=== PATIENT | male | born 1950 | race Caucasian/White ===

== ENCOUNTER 2018-02-08 10:20 | Outpatient (CLI) | payer MEDICARE, BC ==
[2018-02-08 12:15] LABS: Hemoglobin 15.2 g/dL (14.0-18.0); Mean Corpuscular HGB CONC 34.5 g/dL (32.0-36.0); Mean Corpuscular Hemoglobin 31.9 pg (27.0-31.0); Mean Corpuscular Volume 92.5 fl (80.0-94.0); Mean Platelet Volume 9.5 fL (7.4-10.4); Platelet Count 156 thou/uL (130-400); RBC Distribution Width 13.2 % (11.5-14.5); Red Blood Cell (RBC) Count 4.76 mill/uL (4.70-6.10); White Blood Cell (WBC) Count 8.4 thou/uL (4.8-10.8)
[2018-02-08 12:24] LABS: INR-International Normal Ratio 1.1; PTT 30.6 SEC (22.9-36.1); Prothrombin Time 14.2 SEC (12.0-14.7)
[2018-02-08 12:42] LABS: ALT (SGPT) 25 U/L (8-55); AST (SGOT) 18 U/L (5-34); Albumin 4.2 g/dL (3.4-4.8); Alkaline Phosphatase 107 U/L (40-150); Anion Gap 12 mmol/L (10-20); BUN (Urea Nitrogen) 15 mg/dL (8.4-25.7); Bilirubin, Total 0.7 mg/dL (0.2-1.2); Calc. Creatinine Clearance 0 mL/min (70-130); Carbon Dioxide 26 mmol/L (23-31); Cardiac Risk 4.1 (Less than 4.5); Chloride 104 mmol/L (98-107); Cholesterol 139 mg/dl (< 200 Desired); Estimated GFR-MDRD 75; Globulin 2.9 g/dL (2.4-3.5); Glucose 97 mg/dL (80-115); HDL Cholesterol 34 mg/dL (>60 Neg Risk); LDL Cholesterol, Calculated 86 mg/dL; Potassium 3.6 mmol/L (3.5-5.1); Protein, Total 7.1 g/dL (5.8-8.1); Sodium 138 mmol/L (136-145); Triglycerides 94 mg/dL (Less than 150)
== END 2018-02-08 10:21 | disposition home or self-care (01) ==
LOC: LABBT 10:20
PROVIDERS: ATTEND Internal Medicine Cardiovascular Disease
DX: Z01.818 Encounter for other preprocedural examination (principal); I50.9 Heart failure, unspecified
CPT/HCPCS: 80053; 80061; 85027; 85610; 85730; 93005; 93010

== ENCOUNTER 2018-02-11 05:58 | Observation (INO) | payer MEDICARE, BC ==
[2018-02-11] MEDS ORDERED: Nitroglycerin 100MG/250ML BOT 0 ML ONE (06:31)
[2018-02-11] MEDS ORDERED: Heparin 10,000 UNITS/1 ML VIAL ONE ×3 (06:31→07:56)
[2018-02-11] MEDS ORDERED: Verapamil 5 MG/2 ML VIAL ONE (06:31)
[2018-02-11] MEDS ORDERED: Lidocaine 1% (PF) 30 ML VIAL ONE (06:36)
[2018-02-11] MEDS ORDERED: Midazolam HCl 2 mg/2 ml Vial ONE (07:12)
[2018-02-11] MEDS ORDERED: Fentanyl 250 MCG/5 ML VIAL ONE (07:12)
[2018-02-11] MEDS ORDERED: Clopidogrel Bisulfate 300 MG TAB ONE (07:41)
[2018-02-11] MEDS ORDERED: Nitroglycerin 100MG/250ML BOT 250 ML ONE (07:41)
--- NOTE | 2018-02-11 08:18 | CCL ---
ADDENDUM: Mr. Bustillo did well during his procedure. He did have pain after stent implantation. There appeared to be a septal branch that was occluded after placement of the stent. There appeared to be excellen t angiographic result with appropriate step up, step down. ILYA 3 flow noted during the study. Also, note during the procedure, there was significant deep engagement of the catheter during stent p ositioning. It was difficult to place a stent due to continued deep engagement of the catheter. Aft er multiple attempts, there was appropriate placement. POS: [facility]
[2018-02-11] MEDS ORDERED: Morphine 2 MG/ML SYRINGE ONE (08:25)
[2018-02-11] MEDS ORDERED: Nitroglycerin 0.4 MG TAB (25 Tab Bottle) ONE (08:46)
[2018-02-11 12:35] LABS: CKMB 4.6 ng/mL (0-6.6); Troponin I 0.078 ng/mL (< 0.028)
[2018-02-11] MEDS ORDERED: traMADol HCl 50 MG TAB ONE (13:25)
[2018-02-11] MEDS ORDERED: Ondansetron HCl/PF 4 MG/2 ML Vial ONE (14:35)
[2018-02-11] MEDS ORDERED: Iopamidol 370 76% 50 ML VIAL FS ONE (15:31)
[2018-02-11] MEDS ORDERED: Iopamidol 370 76% 100 ML VIAL ONE (15:31)
[2018-02-11 18:07] LABS: CKMB 10.6 ng/mL (0-6.6)
[2018-02-11 18:08] LABS: Troponin I 0.388 ng/mL (< 0.028)
[2018-02-11] MEDS ORDERED: traMADol HCl 50 MG TAB PO PRN (19:11)
[2018-02-11] MEDS ORDERED: Morphine 5 MG/ML SYRINGE SLOW IVP PRN ×2 (19:11→20:27)
[2018-02-11] MEDS ORDERED: Milk Of Magnesia 30 ML UDCUP PO PRN (19:11)
[2018-02-11] MEDS ORDERED: Acetaminophen/Codeine 30-300mg Tablet PO PRN ×2 (19:11→20:26)
[2018-02-11] MEDS ORDERED: Mag-Al 1200 mg/1200 mg/30 ML UDCUP PO PRN (19:11)
[2018-02-11] MEDS ORDERED: Nitroglycerin 0.4 MG TAB (25 Tab Bottle) SL PRN (19:11)
[2018-02-11] MEDS ORDERED: Zolpidem Tartrate 5 MG TAB PO PRN (19:11)
--- NOTE | 2018-02-11 20:05 | EKG ---
Test Reason : POST STENT Blood Pressure : / mmHG Vent. Rate : 071 BPM Atrial Rate : 071 BPM P-R Int : 204 ms QRS Dur : 172 ms QT Int : 470 ms P-R-T Axes : 056 -02 171 degrees QTc Int : 510 ms Normal sinus rhythm Left bundle branch block Abnormal ECG When compared with ECG of 08-FEB-2018 10:25, (Unconfirmed) No significant change was found Confirmed by GÉNESIS SALMON, DR. S. ([id number]) on 02/11/2018 8:05:09 PM Referred By: GRANT Confirmed By:DR. Olesya CAPPS MD
[2018-02-11] MEDS ORDERED: Acetaminophen 325 MG TAB PO PRN (20:08)
[2018-02-11 20:17] LABS: CKMB 15.4 ng/mL (0-6.6)
[2018-02-11] MEDS ORDERED: cloNIDine 0.1 MG TAB PO PRN (20:26)
[2018-02-11] MEDS: Sodium Chloride 0.9% 1,000 ML IV SCH (20:45)
[2018-02-11] MEDS ORDERED: Ondansetron HCl/PF 4 MG/2 ML Vial SLOW IVP PRN (20:45)
[2018-02-11] MEDS ORDERED: Atorvastatin Calcium 40 MG TAB PO SCH ×2 (21:00)
[2018-02-11 21:17] VITALS: BMI 35.2
[2018-02-12 02:04] LABS: CKMB 18.5 ng/mL (0-6.6)
[2018-02-12 05:53] LABS: #Basophils 0.1 thou/uL (0.0-0.2); #Eosinphils 0.4 thou/uL (0.0-0.7); #Lymphocytes 2.5 thou/uL (1.20-3.40); #Monocytes 1.5 thou/uL (0.11-0.59); #Neutrophils 7.1 thou/uL (1.40-6.50); %Basophils 0.5 % (0.0-1.0); %Eosinophils 3.1 % (0.0-10.0); %Lymphocytes 21.6 % (21.0-51.0); %Neutrophils 61.8 % (42.0-75.0); Hemoglobin 14.2 g/dL (14.0-18.0); Mean Corpuscular HGB CONC 34.1 g/dL (32.0-36.0); Mean Corpuscular Hemoglobin 31.3 pg (27.0-31.0); Mean Platelet Volume 9.7 fL (7.4-10.4); Platelet Count 149 thou/uL (130-400); RBC Distribution Width 12.8 % (11.5-14.5); Red Blood Cell (RBC) Count 4.53 mill/uL (4.70-6.10); White Blood Cell (WBC) Count 11.5 thou/uL (4.8-10.8)
[2018-02-12] MEDS: Sodium Chloride 0.9% 1,000 ML IV SCH (06:09)
[2018-02-12 06:20] LABS: ALT (SGPT) 20 U/L (8-55); AST (SGOT) 39 U/L (5-34); Anion Gap 12 mmol/L (10-20); BUN (Urea Nitrogen) 13 mg/dL (8.4-25.7); Bilirubin, Total 0.7 mg/dL (0.2-1.2); Calc. Creatinine Clearance 134 mL/min (70-130); Calcium 9.5 mg/dL (7.8-10.44); Carbon Dioxide 26 mmol/L (23-31); Estimated GFR-MDRD Greater than 90; Globulin 2.5 g/dL (2.4-3.5); Glucose 90 mg/dL (80-115); Potassium 3.5 mmol/L (3.5-5.1); Protein, Total 6.5 g/dL (5.8-8.1); Sodium 138 mmol/L (136-145)
[2018-02-12 06:27] LABS: Alkaline Phosphatase 100 U/L (40-150)
[2018-02-12 06:31] LABS: Chloride 104 mmol/L (98-107)
[2018-02-12] MEDS ORDERED: Hydrochlorothiazide 25 MG TAB PO SCH (09:00)
[2018-02-12] MEDS ORDERED: Valsartan 80 MG TAB PO SCH (09:00)
[2018-02-12] MEDS ORDERED: Clopidogrel Bisulfate 75 MG TAB PO SCH (09:00)
[2018-02-12 11:16] VITALS: BP 141/84; TEMP 97.9
--- NOTE | 2018-02-12 20:35 | EKG ---
Test Reason : STAT Blood Pressure : / mmHG Vent. Rate : 088 BPM Atrial Rate : 088 BPM P-R Int : 194 ms QRS Dur : 170 ms QT Int : 418 ms P-R-T Axes : 056 -07 144 degrees QTc Int : 505 ms Sinus rhythm with frequent Premature ventricular complexes Left bundle branch block Abnormal ECG When compared with ECG of 11-FEB-2018 08:46, Premature ventricular complexes are now Present Confirmed by GÉNESIS SALMON, SKit ([id number]) on 02/12/2018 8:35:43 PM Referred By: GRANT Confirmed By:DR. Olesya CAPPS MD
--- NOTE | 2018-02-12 20:38 | EKG ---
Test Reason : Blood Pressure : / mmHG Vent. Rate : 085 BPM Atrial Rate : 085 BPM P-R Int : 202 ms QRS Dur : 172 ms QT Int : 448 ms P-R-T Axes : 061 -15 138 degrees QTc Int : 533 ms Sinus rhythm with occasional Premature ventricular complexes Left bundle branch block Abnormal ECG When compared with ECG of 11-FEB-2018 19:34, (Unconfirmed) No significant change was found Confirmed by GÉNESIS SALMON, DR. S. ([id number]) on 02/12/2018 8:38:15 PM Referred By: GRANT Confirmed By:DR. Olesya CAPPS MD
== END 2018-02-12 11:38 | disposition home or self-care (01) ==
LOC: CCL 05:58 → 2SW 18:31 → CCL 19:13
PROVIDERS: ADMIT Internal Medicine Cardiovascular Disease; ATTEND Internal Medicine Cardiovascular Disease
PROC: 027034Z Dilation of Coronary Artery, One Artery with Drug-eluting Intraluminal Device, Percutaneous Approach (ICD-10-PCS; principal; 2018-02-11)
DX: I11.0 Hypertensive heart disease with heart failure (principal); I50.22 Chronic systolic (congestive) heart failure; E78.5 Hyperlipidemia, unspecified; K50.90 Crohn's disease, unspecified, without complications; I25.119 Atherosclerotic heart disease of native coronary artery with unspecified angina pectoris; M19.90 Unspecified osteoarthritis, unspecified site; Z79.82 Long term (current) use of aspirin; Z79.899 Other long term (current) drug therapy; Z88.1 Allergy status to other antibiotic agents; Z88.2 Allergy status to sulfonamides; Z98.890 Other specified postprocedural states
CPT/HCPCS: 76942; 80053; 82553 ×4; 84484 ×2; 85025; 85347 ×3; 93005 ×3; 93454; 93798; 96374; C1725; C1769 ×2; C1874; C9600; G0378; 36415; 92928; 93010; 99152; J1644; J2001; J2250; J2270; J2405; J3010

== ENCOUNTER 2018-03-25 14:32 | Outpatient (CLI) | payer MEDICARE, BC ==
--- NOTE | 2018-03-25 15:15 | ULT ---
DOPPLER VENOUS ULTRASOUND OF THE RIGHT LOWER EXTREMITY: Indication: Right leg pain extending from the knee to the foot that woke him from sleep for the past 10 days. TECHNIQUE: Clarke scale, color Doppler, and vascular duplex with spectral analysis was performed of the deep venou s structures of both lower extremities. The common femoral vein, superficial femoral vein, popliteal vein, posterior tibial vein, proximal greater saphenous, and proximal profunda veins were assessed bi laterally. FINDINGS: There is appropriate flow, compression, and augmentation seen within the deep venous structures of th e right lower extremity. IMPRESSION: No evidence of DVT within the right lower extremity. POS: [facility]
== END 2018-03-25 14:33 | disposition home or self-care (01) ==
LOC: SCSULT 14:32
PROVIDERS: ATTEND Family Medicine
DX: M79.604 Pain in right leg (principal)

== ENCOUNTER 2018-06-29 04:10 | Observation (INO) | payer MEDICARE, BC ==
[2018-06-29 04:52] LABS: #Eosinphils 0.3 thou/uL (0.0-0.7); #Lymphocytes 2.3 thou/uL (1.20-3.40); #Monocytes 1.2 thou/uL (0.11-0.59); #Neutrophils 5.5 thou/uL (1.40-6.50); %Basophils 0.3 % (0.0-1.0); %Eosinophils 3.4 % (0.0-10.0); %Lymphocytes 24.3 % (21.0-51.0); %Monocytes 13.3 % (0.0-10.0); %Neutrophils 58.7 % (42.0-75.0); Mean Corpuscular HGB CONC 35.2 g/dL (32.0-36.0); Mean Corpuscular Hemoglobin 32.5 pg (27.0-31.0); Mean Corpuscular Volume 92.4 fL (78.0-98.0); Mean Platelet Volume 8.9 fL (7.4-10.4); Platelet Count 139 thou/uL (130-400); RBC Distribution Width 12.7 % (11.5-14.5); White Blood Cell (WBC) Count 9.3 thou/uL (4.8-10.8)
[2018-06-29 05:13] LABS: ALT (SGPT) 22 U/L (8-55); AST (SGOT) 16 U/L (5-34); Albumin 4.2 g/dL (3.4-4.8); Alkaline Phosphatase 99 U/L (40-150); Anion Gap 17 mmol/L (10-20); BUN (Urea Nitrogen) 15 mg/dL (8.4-25.7); Bilirubin, Total 0.7 mg/dL (0.2-1.2); Calc. Creatinine Clearance 0 mL/min (70-130); Calcium 9.1 mg/dL (7.8-10.44); Carbon Dioxide 22 mmol/L (23-31); Chloride 105 mmol/L (98-107); Estimated GFR-MDRD 75; Globulin 2.5 g/dL (2.4-3.5); Glucose 125 mg/dL (80-115); Lipase 37 U/L (8-78); Potassium 3.6 mmol/L (3.5-5.1); Protein, Total 6.7 g/dL (5.8-8.1); Sodium 140 mmol/L (136-145)
[2018-06-29 05:21] LABS: Bilirubin Negative (Negative); Blood, Urine Negative (Negative); Clarity CLEAR (Clear); Glucose, Urine (Dipstick) Negative (Negative); Leukocyte Negative (Negative); Nitrite Negative (Negative); Protein, Urine (Dipstick) Negative (Neg-Trace); Specific Gravity, Urine 1.023 (1.002-1.036)
[2018-06-29] MEDS ORDERED: Morphine 4 MG/ML VIAL ONE (05:34)
[2018-06-29] MEDS ORDERED: Ondansetron ODT 4 MG TAB ONE (05:35)
[2018-06-29 06:26] LABS: CKMB 1.3 ng/mL (0-6.6); Troponin I Less than 0.010 ng/mL (< 0.028)
[2018-06-29] MEDS ORDERED: Levofloxacin 500 mg/D5W 100 ml Premix Bag ONE (06:50)
--- NOTE | 2018-06-29 08:16 | ULT ---
PRELIMINARY REPORT/[facility]/EMERGENCY AFTER HOURS PROCEDURE: EXAM: US Abdomen Limited, Right Upper Quadrant EXAM DATE/TIME: 06/29/2018 6:01 AM CLINICAL HISTORY: 68 years old, male; Pain; Other: Upper abd pain, +kenny TECHNIQUE: Real-time ultrasound of the abdomen with image documentation. Examination is focused on the right upper quadrant. COMPARISON: No relevant prior studies available. FINDINGS: Liver: The left lobe liver is not well-seen. There is mild increased echogenicity of the right lobe l iver. Gallbladder: The gallbladder is distended. There is focal gallbladder wall thickening measuring up to 4.7 mm. There is pericholecystic fluid. Based on seating and mobility technologist report, there is positive M urphy's sign. Common bile duct: The common bile duct measures 4-5 mm. Pancreas: The pancreas is not well seen due to overlying bowel gas. Right kidney: The right kidney measures 11.6 x 5.5 x 5.9cm. IMPRESSION: 1. Findings are concerning for cholecystitis. Please correlate. 2. Probable fatty infiltration of the liver. Thank you for allowing us to participate in the care of your patient. Dictated and Authenticated by: Judy Bustos DO 06/29/2018 7:07 AM Central Time ([place] & [place]) FINAL REPORT BY DR. MEDRANO EMERGENCY AFTER HOURS STUDY ULTRASOUND ABDOMEN LIMITED: (RIGHT UPPER QUADRANT) HISTORY: Right upper quadrant abdominal pain in 68-year-old male. FINDINGS: Gallbladder: No gallstone identified. Focal mild mural thickening up to 5 mm. Other regions of gallbl adder have normal wall thickness. Positive tenderness over the gallbladder. Mildly distended lumen. Q uestionable minimal amount of pericholecystic fluid. Common duct: 5 mm. Liver: Mildly heterogeneously increased echogenicity, probably representing fatty liver. Pancreas: Nonspecific diffusely hyperechoic appearance. Right kidney: No hydronephrosis. No major disagreement with preliminary report by Lynnette. IMPRESSION: 1. No evidence of cholelithiasis. 2. Findings questionable for acalculous cholecystitis. Consider further evaluation with nuclear medi cine hepatobiliary scan. 3. Probable hepatic steatosis. TOMASZ Don POS: [facility]
[2018-06-29 09:36] VITALS: BMI 34.4
[2018-06-29] MEDS ORDERED: Ondansetron ODT 4 MG TAB PO PRN (10:24)
[2018-06-29] MEDS ORDERED: Ondansetron HCl/PF 4 MG/2 ML Vial IVP PRN ×2 (10:24→13:50)
[2018-06-29] MEDS ORDERED: Lactated Ringer's 1,000 ML IV SCH (10:30)
[2018-06-29] MEDS ORDERED: Carvedilol 6.25 MG TAB PO SCH (11:15)
[2018-06-29] MEDS ORDERED: Ketorolac Tromethamine 30 MG/ML VIAL IVP SCH (11:15)
[2018-06-29] MEDS ORDERED: Acetaminophen 1,000 MG in Premix Bag 1 BAG IVPB SCH (11:15)
[2018-06-29] MEDS ORDERED: Ketorolac Tromethamine 30 MG/ML VIAL ONE (11:31)
[2018-06-29] MEDS ORDERED: Fentanyl 100 MCG/2 ML VIAL ONE ×2 (12:16→14:13)
[2018-06-29] MEDS ORDERED: HYDROmorphone 0.5 MG/0.5 ML SYRINGE ONE ×2 (12:17)
[2018-06-29] MEDS ORDERED: Bupivacaine HCl 0.5%/Epinephrine 1:200,000/PF 30 ml Vial ONE (12:18)
[2018-06-29] MEDS ORDERED: Meperidine HCl/PF 25 MG/ML VIAL SLOW IVP PRN (13:50)
[2018-06-29] MEDS ORDERED: Promethazine HCl 25 MG/ML VIAL IM PRN (13:50)
[2018-06-29] MEDS ORDERED: Promethazine HCl 25 MG/ML VIAL SLOW IVP PRN (13:50)
[2018-06-29] MEDS ORDERED: Ibuprofen 600 MG TAB PO PRN (14:18)
[2018-06-29] MEDS ORDERED: Acetaminophen 500 MG TAB PO PRN (14:18)
[2018-06-29] MEDS ORDERED: traMADol HCl 50 MG TAB PO PRN ×2 (14:18)
[2018-06-29] MEDS ORDERED: ePHEDrine/0.9% NaCl/PF SYRINGE 50 mg/10 ml ONE (14:46)
[2018-06-29] MEDS ORDERED: PROPOFOL 200 MG/20 ML VIAL ONE (14:46)
[2018-06-29] MEDS ORDERED: Dexamethasone 20 MG/5 ML VIAL ONE (14:46)
[2018-06-29] MEDS ORDERED: Ondansetron HCl/PF 4 MG/2 ML Vial ONE (14:46)
[2018-06-29] MEDS ORDERED: Lidocaine 1% PF 5 ML VIAL ONE (14:46)
[2018-06-29] MEDS ORDERED: Glycopyrrolate 0.2 MG/ML 5 ML SYRINGE ONE (14:46)
[2018-06-29] MEDS ORDERED: PHENYLEPHRINE-NS 100 MCG/ML 10 ML SYRINGE ONE (14:46)
--- NOTE | 2018-06-29 15:57 | HP ---
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 Since that time, he has h ad problems with indigestion and bloating. He presents to the emergency room with a particularly sev ere episode onset yesterday. Pain is right upper quadrant. He has suffered nausea and vomiting. He had a gallbladder ultrasound noting pericholecystic fluid, thickened gallbladder wall, positive sono graphic Bey sign correlating with physical exam, positive Bey sign. Bile duct was 4-5 mm in di ameter. White count 9, hemoglobin 15. Liver function tests are normal. Lipase is normal. In 2016, he had a lipase up at 9135 when he had that episode. Gallbladder ultrasound in 2016 revealed a bile duct of 4 mm. No gallstones. The patient has had morphine early this morning and placed in the hos pital and placed on Levaquin. He is feeling some pressure and discomfort, but not as severe as when he was admitted. His abdomen exam reveals less tenderness, although tenderness to palpation, more so reness as he describes. ALLERGIES: SULFA and TETRACYCLINE. TOBACCO: None. ALCOHOL: Rarely. MEDICATIONS: Carvedilol 12.5 mg a day, daily, triamcinolone naris daily, Apriso three caps a.m ., Viagra as needed, Protonix 40 mg at bedtime, aspirin 81 mg a day, Flexeril 10 mg t.i.d., Lipitor 8 0 mg at bedtime, glucosamine daily, Singulair daily, Plavix daily. PAST SURGICAL HISTORY: The patient has had a coronary stent, myocardial infarction 20 years ago, he had another stent years after that. Dr. Morales saw him for dyspnea and placed another stent LAD t hree months ago. He is on Plavix and aspirin. He saw Dr. Morales recently. Echocardiogram reveal ed diminished ejection fraction, but otherwise is doing well, asymptomatic from coronary standpoint. The patient was recommended by Dr. Cummings to have a followup colonoscopy, but that was postponed as Dr. Morales did not want him to stop his Plavix for that procedure. He does have a history of poly ps and is due for colonoscopy in the near future when it is safe to do so and off his Plavix for an a cceptable period of time, rotator cuff surgery. PAST MEDICAL HISTORY: 1. Hypertension, stable. 2. Coronary artery disease. FAMILY HISTORY: Noncontributory. SOCIAL HISTORY: Patient is and lives in the [facility] area. PHYSICAL EXAMINATION: VITAL SIGNS: 5 foot 10, 240 pounds, 98 degrees, 71, 155/75. HEENT: Unremarkable. LUNGS: Clear to auscultation. CARDIAC: Regular rate and rhythm without murmur or gallop. ABDOMEN: Soft. Mild tenderness in right upper quadrant, mild guarding. EXTREMITIES: Unremarkable. No ankle edema. No lymphadenopathy in neck, axilla or groins. NEUROLOGIC: Neurologically intact. No neurological deficit. Cranial nerves intact. SKIN: Normal. Palpable pedal pulses. LABORATORY DATA: Sodium 140, potassium 3.6, BUN 15, creatinine 0.9, lipase 37. Liver function tests normal. Urinalysis unremarkable. White count 9, hemoglobin 15. ASSESSMENT AND PLAN: 1. Cholecystitis without evident cholelithiasis. He has a positive Bey sign on exam. Positive s onographic Bey sign, normal bile duct caliber, normal liver function test, pericholecystic fluid o n ultrasound and findings consistent with cholecystitis. Plan, laparoscopic video cholecystectomy. Risk of infection, bleeding, visceral and biliary injury discussed. I think he is safe from a cardia c standpoint and he can continue his aspirin and Plavix perioperatively. 2. Coronary artery disease, stable. 3. Hypertension.
[2018-06-29 17:02] VITALS: BP 134/67; TEMP 97.2
--- NOTE | 2018-06-29 22:46 | DIS ---
ADMISSION DIAGNOSES: Cholecystitis, acalculous. PROCEDURES: Laparoscopic video cholecystectomy, ultrasound of the gallbladder, sonographic-positive Bey sign, normal bile duct caliber, normal liver function test. DISCHARGE MEDICATIONS: He will continue his Plavix and aspirin postoperatively. Continue his preope rative medications, Carvedilol, etc. DISCHARGE INSTRUCTIONS: Diet and activity as tolerated without restrictions. Follow up in 2 weeks. HISTORY: A 68-year-old male with coronary artery disease, status post myocardial infarction, stent p lacement 20 years ago with another stent placed years after that, more recently another stent placed by Dr. Morales earlier this year. Followup with Dr. Morales reveals a slightly compromised eject ion fraction echocardiogram. The patient is asymptomatic from a cardiac standpoint, although having biliary symptoms for the last 2 years, having presented with an episode of pancreatitis of undetermin ed etiology 2 years ago. On this occasion, he presented with right upper quadrant pain, back radiati on, nausea ongoing for 24 hours. Ultrasound revealed edematous thickened wall gallbladder, positive sonographic Bey sign. Clinical exam revealed a positive Bey sign. White count was normal. Li tremaine function tests normal, bile duct caliber normal. The patient taken to the operating room for a l aparoscopic cholecystectomy. Postoperatively, he did well, discharged home with Ultram, Tylenol, Mot rin p.r.n. pain. Resume his home medications. Follow up in my office in 2-3 weeks. Diet and activi ty as tolerated without restricted lifting.
[2018-06-30] MEDS ORDERED: Polyethylene Glycol 3350 17 GM Packet PO SCH (09:00)
--- NOTE | 2018-07-01 12:42 | OP ---
DATE OF PROCEDURE: 07/23/2018 PREOPERATIVE DIAGNOSES: Cholelithiasis, cholecystitis. POSTOPERATIVE DIAGNOSES: Cholelithiasis, cholecystitis. PROCEDURE: Laparoscopic video cholecystectomy. SURGEON: Dr. Abdul. ANESTHESIA: General. Local 0.5% Marcaine with epinephrine, 30 mL. Bile duct 4.7 mm. Liver function tests normal. Positive sonographic Bey sign. DESCRIPTION OF PROCEDURE: The patient was taken to the operating room where under general anesthesia , abdomen was prepared with ChloraPrep and draped in routine fashion. Local anesthetic infiltrated i nto the skin and subcutaneous tissue about the operative sites. Infraumbilical incision made and pne umoperitoneum to 15 mmHg obtained with the Veress needle, replacing it with a 5 port and laparoscope inserted. Right subxiphoid incision made and 11 port placed. Right subcostal incision made mid clav icular, anterior axillary lines and 5 ports placed. Liver appeared to be normal. Gallbladder was in flamed acutely. Fundus grasped at the cephalad. Infundibulum of the gallbladder grasped and reflect ed laterally. Cystic artery and duct dissected free. Good hemostasis obtained throughout the proced ure. Critical view obtained. Cystic artery and duct doubly clipped proximally, divided, and gallbla dder dissected free from liver bed obtaining good hemostasis prior to division of final peritoneal at tachments. Gallbladder and contents removed and submitted to Pathology. Good hemostasis ensured wit h the cautery. Irrigant and pneumoperitoneum evacuated. All incisions made. All skin incisions lizbet roximated with interrupted subdermal 4-0 Monocryl and DermaGlue applied.
--- NOTE | 2018-07-13 11:10 | EKG ---
Test Reason : Blood Pressure : / mmHG Vent. Rate : 064 BPM Atrial Rate : 064 BPM P-R Int : 206 ms QRS Dur : 172 ms QT Int : 466 ms P-R-T Axes : 052 -09 154 degrees QTc Int : 480 ms Poor data quality, interpretation may be adversely affected Normal sinus rhythm Left bundle branch block Abnormal ECG Confirmed by CHETAN CARRILLO DO ([id number]), order editor LACIE LOVELL ([id number]) on 07/13/2018 11:10:29 AM Referred By: Confirmed By:CHETAN CARRILLO DO
== END 2018-06-29 17:50 | disposition home or self-care (01) ==
LOC: ERS 04:10 → SURG A 07:10
PROVIDERS: ADMIT Specialist; ATTEND Specialist
PROC: 0FT44ZZ Resection of Gallbladder, Percutaneous Endoscopic Approach (ICD-10-PCS; principal; 2018-06-29)
DX: K80.10 Calculus of gallbladder with chronic cholecystitis without obstruction (principal); I10 Essential (primary) hypertension; I25.10 Atherosclerotic heart disease of native coronary artery without angina pectoris; I25.2 Old myocardial infarction; Z79.82 Long term (current) use of aspirin; Z79.899 Other long term (current) drug therapy; Z88.1 Allergy status to other antibiotic agents; Z88.2 Allergy status to sulfonamides; Z95.5 Presence of coronary angioplasty implant and graft
CPT/HCPCS: 47562; 76705; 80053; 81003; 82550; 82553; 83690; 84484; 85025; 93005; 96361; 96365; 96374; 96375; 99285; G0378 ×2; 36415; J0131; J0670; J1100; J1170; J1885; J1956; J2001; J2270; J2405; J2704; J3010; Q0162

== ENCOUNTER 2018-10-22 19:30 | Outpatient (CLI) | payer MEDICARE, BC | END 2018-10-22 19:31 | disposition home or self-care (01) | LOC: SLEEPLAB 19:30 | PROVIDERS: ATTEND Family Medicine | DX: G47.33 Obstructive sleep apnea (adult) (pediatric) (principal); R53.83 Other fatigue; R09.89 Other specified symptoms and signs involving the circulatory and respiratory systems; I10 Essential (primary) hypertension; I25.10 Atherosclerotic heart disease of native coronary artery without angina pectoris; R06.83 Snoring; G47.10 Hypersomnia, unspecified; G47.00 Insomnia, unspecified; R35.1 Nocturia; E66.9 Obesity, unspecified; Z68.34 Body mass index [BMI] 34.0-34.9, adult | CPT/HCPCS: 95811 ==

== ENCOUNTER 2018-11-01 12:31 | Outpatient (CLI) | payer MEDICARE, BC ==
[2018-11-01 13:52] LABS: Hemoglobin 14.9 g/dL (14.0-18.0); Mean Corpuscular HGB CONC 34.1 g/dL (32.0-36.0); Mean Corpuscular Hemoglobin 32.1 pg (27.0-31.0); Mean Corpuscular Volume 94.1 fL (78.0-98.0); Mean Platelet Volume 9.8 fL (7.4-10.4); Platelet Count 174 thou/uL (130-400); RBC Distribution Width 12.4 % (11.5-14.5); Red Blood Cell (RBC) Count 4.65 mill/uL (4.70-6.10); White Blood Cell (WBC) Count 8.5 thou/uL (4.8-10.8)
[2018-11-01 13:55] LABS: Prothrombin Time 13.7 SEC (12.0-14.7)
[2018-11-01 14:03] LABS: Bilirubin Negative (Negative); Blood, Urine Negative (Negative); Clarity CLEAR (Clear); Glucose, Urine (Dipstick) Negative (Negative); Leukocyte Negative (Negative); Nitrite Negative (Negative); Protein, Urine (Dipstick) Negative (Neg-Trace); Specific Gravity, Urine 1.014 (1.002-1.036); Urobilinogen 0.2 mg/dL (0.2-1.0); pH, Urine 5.5 (5.0-9.0)
[2018-11-01 14:05] LABS: Bacteria/HPF None Seen HPF (None Seen); Hyaline Casts/LPF 0-3 HYALINE CAST LPF (0-3 Hyaline); Squamous Epithelial 0-3 HPF (0-3)
[2018-11-01 14:13] LABS: Anion Gap 9 mmol/L (10-20); BUN (Urea Nitrogen) 13 mg/dL (8.4-25.7); Calc. Creatinine Clearance 0 mL/min (70-130); Carbon Dioxide 27 mmol/L (23-31); Chloride 107 mmol/L (98-107); Estimated GFR-MDRD 81; Glucose 106 mg/dL (80-115); Potassium 3.8 mmol/L (3.5-5.1); Sodium 139 mmol/L (136-145)
== END 2018-11-01 12:32 | disposition home or self-care (01) ==
LOC: LABBT 12:31
PROVIDERS: ATTEND Orthopaedic Surgery
DX: Z01.812 Encounter for preprocedural laboratory examination (principal); M17.11 Unilateral primary osteoarthritis, right knee
CPT/HCPCS: 80048; 81001; 85027; 85610; 87081

== ENCOUNTER 2018-11-08 12:41 | Outpatient (CLI) | payer MEDICARE, BC | END 2018-11-08 12:42 | disposition home or self-care (01) | LOC: LABBT 12:41 | PROVIDERS: ATTEND Orthopaedic Surgery | DX: Z01.812 Encounter for preprocedural laboratory examination (principal); M17.11 Unilateral primary osteoarthritis, right knee | CPT/HCPCS: 86850; 86900; 86901 ==

== ENCOUNTER 2018-11-12 05:40 | Inpatient (IN) | payer MEDICARE, BC ==
[2018-11-01 12:54] VITALS: BMI 33.7
[2018-11-12] MEDS ORDERED: Clindamycin/D5W 600 mg/50 ml Premix Bag ONE (06:00)
[2018-11-12] MEDS ORDERED: Tranexamic Acid 1,000 MG/10 ML VIAL ONE ×2 (06:00→09:31)
[2018-11-12] MEDS ORDERED: Sodium Chloride 0.9% 100 ML ONE (06:13)
[2018-11-12] MEDS ORDERED: Vancomycin HCl 1.5 GM in Sodium Chloride 0.9% 250 ML 300 ML IVPB SCH ×3 (06:15→19:00)
[2018-11-12] MEDS ORDERED: Midazolam HCl 2 mg/2 ml Vial ONE (06:27)
[2018-11-12] MEDS ORDERED: Lidocaine 1% (PF) 30 ML VIAL ONE (06:27)
[2018-11-12] MEDS ORDERED: Fentanyl 100 MCG/2 ML VIAL ONE ×4 (06:27→10:19)
[2018-11-12] MEDS ORDERED: Bupivacaine/Epinephrine 0.25% 30 ML VIAL ONE (06:44)
[2018-11-12] MEDS ORDERED: CEFAZOLIN 2 GM/50 ML BAG ONE (06:51)
[2018-11-12] MEDS ORDERED: Promethazine HCl 25 MG/ML VIAL IM PRN ×2 (07:21→10:26)
[2018-11-12] MEDS ORDERED: traMADol HCl 50 MG TAB PO PRN (07:21)
[2018-11-12] MEDS ORDERED: Ropivacaine HCl/PF 250 ML in Premix Bag 1 BAG NERVE BLCK SCH (07:21)
[2018-11-12] MEDS ORDERED: Ketorolac Tromethamine 30 MG/ML VIAL IVP PRN ×2 (07:21→11:20)
[2018-11-12] MEDS ORDERED: Ondansetron PF 4 MG/2 ML Vial IVP PRN (07:21)
[2018-11-12] MEDS ORDERED: Zolpidem Tartrate 5 MG TAB PO PRN (07:21)
[2018-11-12] MEDS ORDERED: Fentanyl 100 MCG/2 ML VIAL IV PRN (07:22)
[2018-11-12] MEDS ORDERED: Tranexamic Acid 1,000 MG in Sodium Chloride 0.9% 100 ML IVPB SCH (09:30)
[2018-11-12] MEDS ORDERED: Ropivacaine 0.5% HCl/PF (150 MG/30 ML VIAL) ONE (10:11)
[2018-11-12] MEDS ORDERED: Bupivacaine 0.25% HCL 30 ML VIAL ONE (10:11)
[2018-11-12] MEDS ORDERED: Promethazine HCl 25 MG/ML VIAL SLOW IVP PRN (10:26)
[2018-11-12] MEDS ORDERED: Ondansetron HCl/PF 4 MG/2 ML Vial IVP PRN (10:26)
--- NOTE | 2018-11-12 10:42 | RAD ---
RIGHT KNEE TWO VIEWS: History: Post op total knee arthroplasty. FINDINGS/IMPRESSION: There are recent post op changes of total knee arthroplasty in good position and alignment. Soft tiss ue air is present. POS: H
[2018-11-12] MEDS ORDERED: CEFAZOLIN/Water 2 GM/20 ML SYRINGE SLOW IVP SCH (11:20)
[2018-11-12] MEDS ORDERED: Fentanyl 100 MCG/2 ML VIAL SLOW IVP PRN (11:20)
[2018-11-12] MEDS ORDERED: Acetaminophen 325 MG TAB PO PRN (11:20)
[2018-11-12] MEDS ORDERED: diphenhydrAMINE 25 MG CAP PO PRN (11:20)
[2018-11-12] MEDS ORDERED: VIAGRA 100 MG PO SCH (12:30)
--- NOTE | 2018-11-12 12:55 | PDOC.PN ---
- Subjective Encounter Start Date: 11/12/18 Encounter Start Time: 12:00 Subjective: no sob or chest pain. Fully awake, not eaten so far -: is postop right knee arthroplasty - Objective MAR Reviewed: Yes Vital Signs & Weight: Vital Signs (12 hours) Temp Pulse Resp BP Pulse Ox 11/12/18 12:00 95 11/12/18 11:47 95 11/12/18 11:30 97.5 F L 60 20 149/81 H 95 Weight Weight 235 lb Phys Exam - Physical Examination HEENT: PERRLA dry mucosa Neck: no JVD, supple Respiratory: no wheezing, no rales Cardiovascular: RRR, no significant murmur Gastrointestinal: soft, non-tender, positive bowel sounds Musculoskeletal: no edema, pulses present Neurological: non-focal, moves all 4 limbs Psychiatric: normal affect, A&O x 3 Dx/Plan (1) Status post total knee replacement, right Code(s): Z96.651 - PRESENCE OF RIGHT ARTIFICIAL KNEE JOINT Status: Acute (2) CAD (coronary artery disease) Code(s): I25.10 - ATHSCL HEART DISEASE OF [place] CORONARY ARTERY W/O ANG PCTRS Status: Chronic Qualifiers: Coronary Disease-Associated Artery/Lesion type: [place] artery [place] vs. transplanted heart: [place] heart Associated angina: without angina Qualified Code(s): I25.10 - Atherosclerotic heart disease of [place] coronary artery without angina pectoris Comment: 3 prior stents, of 1 was recently by (3) Crohns disease Code(s): K50.90 - CROHN'S DISEASE, UNSPECIFIED, WITHOUT COMPLICATIONS Status: Chronic Qualifiers: Gastrointestinal tract location: unspecified location Digestive disease complication type: without complication Qualified Code(s): K50.90 - Crohn's disease, unspecified, without complications Comment: on mesalamine, f/u with , in remission from 8-10yrs now (4) Dyslipidemia Code(s): E78.5 - HYPERLIPIDEMIA, UNSPECIFIED Status: Chronic (5) HTN (hypertension) Code(s): I10 - ESSENTIAL (PRIMARY) HYPERTENSION Status: Chronic Qualifiers: Hypertension type: essential hypertension Qualified Code(s): I10 - Essential (primary) hypertension - Plan hemostable -: continue asp bid, coreg, benicar, crestor, mesalamine and singulair -: on fentanyl, ropivacaine nr block -: PT per ortho adv -: will f/u * . Review of Systems - Medications/Allergies Allergies/Adverse Reactions: Allergies Allergy/AdvReac Type Severity Reaction Status Date / Time sulfasalazine Allergy Verified 11/01/18 12:47 tetracycline Allergy Verified 11/01/18 12:47 Medications: Current Medications Acetaminophen (Tylenol) 650 mg PO Q4H PRN PRN Reason: Headache/Fever or Pain Hydrocodone Bitart/Acetaminophen (Burr 10/325) 1 tab PO Q4H PRN PRN Reason: Pain (1-3) Hydrocodone Bitart/Acetaminophen (Burr 10/325) 2 tab PO Q4H PRN PRN Reason: PAIN (4-6) Aspirin (Ecotrin) 81 mg PO BID [facility] Carvedilol (Coreg) 12.5 mg PO BID [facility] Clopidogrel Bisulfate (Plavix) 75 mg PO DAILY [facility] Cyclobenzaprine HCl (Flexeril) 10 mg PO TIDPRN PRN PRN Reason: Muscle Spasm Diphenhydramine HCl (Benadryl) 25 mg PO Q6H PRN PRN Reason: Itching Fentanyl (Sublimaze) 50 mcg IV Q1H PRN PRN Reason: BT PAIN Fentanyl (Pacu-Sublimaze) 50 mcg SLOW IVP Q10MIN PRN PRN Reason: Moderate to Severe Pain (6-10) Stop: 11/12/18 13:26 Fentanyl (Sublimaze) 100 mcg SLOW IVP Q1H PRN PRN Reason: Severe Pain (7-10) Ferrous Gluconate (Fergon) 324 mg PO BID [facility] Fluticasone Propionate (Flonase Nasal [place]) 0 gm NASAL DAILY [facility] Ropivacaine 250 ml/ Device 250 mls @ 0 mls/hr NERVE BLCK INF [facility] Tranexamic Acid 1,000 mg/ (Sodium Chloride) 110 mls @ 200 mls/hr IVPB ONE [facility] Stop: 11/12/18 21:00 Dextrose/Sodium Chloride (D5 1/2 Ns) 1,000 mls @ 100 mls/hr IV .Q10H [facility] Cefazolin Sodium/Dextrose 2 gm (/ Device) 50 mls @ 100 mls/hr IVPB Q8HR [facility] Stop: 11/12/18 22:29 Iron/Minerals/Multivitamins (Theragran M) 1 tab PO DAILY [facility] Ketorolac Tromethamine (Toradol) 15 mg IVP Q8HR PRN PRN Reason: Pain Stop: 11/14/18 11:21 Montelukast Sodium (Singulair) 10 mg PO QPM [facility] Olmesartan (Benicar) 20 mg PO DAILY [facility] Ondansetron HCl (Zofran) 4 mg IVP Q6H PRN PRN Reason: Nausea/Vomiting Ondansetron HCl (Pacu-Zofran) 4 mg IVP ONE PRN PRN Reason: Nausea/Vomiting Stop: 11/12/18 13:26 Pantoprazole Sodium (Protonix) 40 mg PO HS [facility] Viagra 100 Mg 0 each PO ASDIR [facility] Mesalamine 0.375 Gm- (3 Caps) 0 each PO QAM [facility] Promethazine HCl (Phenergan) 12.5 mg IM Q4H PRN PRN Reason: Nausea Promethazine HCl (Pacu-Phenergan) 6.25 mg SLOW IVP ONE PRN PRN Reason: Nausea/Vomiting Stop: 11/12/18 13:26 Promethazine HCl (Pacu-Phenergan) 6.25 mg IM ONE PRN PRN Reason: Nausea/Vomiting Stop: 11/12/18 13:26 Rosuvastatin Calcium (Crestor) 40 mg PO HS [facility] Senna/Docusate Sodium (Senokot S) 2 tab PO BID [facility] Sodium Chloride (Flush - Normal Saline) 10 ml IVF PRN PRN PRN Reason: Saline Flush Tramadol HCl (Ultram) 50 mg PO Q6H PRN PRN Reason: Mild Pain (1-3) Tramadol HCl (Ultram) 100 mg PO Q6H PRN PRN Reason: Moderate Pain 4-6 Zolpidem Tartrate (Ambien) 5 mg PO HSPRN PRN PRN Reason: Insomnia
[2018-11-12] MEDS: Dextrose 5 %-0.45 % NaCl 1,000 ML IV SCH ×2 (12:56→17:35)
[2018-11-12] MEDS: CEFAZOLIN 2 GM/50 ML-DEXTROSE 2 GM in Premix Bag 1 BAG IVPB SCH ×2 (13:23→21:27)
--- NOTE | 2018-11-12 15:21 | OP ---
DATE OF PROCEDURE: 11/12/2018 PREOPERATIVE DIAGNOSIS: Right knee osteoarthritis. POSTOPERATIVE DIAGNOSIS: Right knee osteoarthritis. PROCEDURE PERFORMED: Right total knee arthroplasty. AS400 OPERATOR: Radha Gipson PA-C. ANESTHESIOLOGIST: Mau Palomino DO. ANESTHESIA: The patient received LMA with adductor canal in single shot, sciatic. ESTIMATED BLOOD LOSS: 100 mL. TOURNIQUET TIME: 82 minutes at 300 mmHg. ANTIBIOTICS: Ancef 2 g, vancomycin 1.5 g. The patient received TXA 1 g. IMPLANTS: [place] Triathlon size 5 CR femur, a 30 Triathlon X3, a 32 patella, Triathlon size 5 baseplate, and a Triathlon X3 5 CS 9-mm poly. COMPLICATIONS: None. HISTORY OF PRESENT ILLNESS: Mr. Bustillo is a pleasant 68-year-old male, presents with knee pain for over a year, history of knee pain that affects sleep, decreased range of motion. The patient had received clearance by his crusher tender. Discussed with the patient the risks and benefits of surgery to include pain, scar, bleeding, infection, damage to vital structures, decreased range of motion and strength, continued pain despite surgical intervention, damage to vital structures, loss of life or limb. The patient understood these risks and benefits and elected to proceed. DESCRIPTION OF PROCEDURE: Time-out was performed designating the patient's right upper extremity as the operative site, based on site, consent, and markings. After time-out, the patient's right upper extremity was prepped and draped in sterile fashion. Medial parapatellar arthrotomy to medial soft tissue release, excised the fat pad, everted the patella. We then mapped out the femur cut with 11 and 7 , 0 degrees of varus and valgus, 4 degrees of anterior slope. We removed this and placed our 3-degree external rotation guide in position and we pinned into position. We sized first to 6, and moved down to 5, cut our anterior, posterior, and chamfer cuts. Removed the osteophytes, placed the pickle fork into position, and taken down the ACL and raised to the level of the lateral meniscus for positioning. We then mapped out our tibia to cut at 0 degrees of varus and valgus, 4 degrees of posterior slope, 1 and 5 respectively, and removed the osteophytes. We removed the segment of bone. We then came back, and we placed the lamina spreaders medially and laterally, decompressed the PCL, took any osteophytes off posterior, decompressed the medial collateral ligament, took all the osteophytes off. We then moved back and placed the tibial tray, 5 tray into position, which we floated into position. We placed a poly and a femur into position. We floated it, flexion-extension to ensure we had good overall rotational position on flexion-extension. I liked the positioning based on flexion-extension views, we pinned the tray into position. We then examined on varus and valgus stress. We moved to the patella, everted 25 mm down to about 13 mm. We placed in a 32 drill for a 32 patella. We tracked and had overall good tracking. We then everted the patella, drilled our lug holes, cut our keel for tibia. We cemented our tibia, placed our poly, cemented our femur, removed all excess cement. After those 2 steps, we placed our button for our patella and removed the excess cement. We then washed, closed with 2 Vicryl, 2 STRATAFIX 0, STRATAFIX 2-0, and glue. The patient will be admitted [facility] and will be followed inhouse and discharged later this week per protocol. Job ID: [id number] [facility]
[2018-11-12] MEDS: traMADol HCl 50 MG TAB PO PRN (15:41)
[2018-11-12] MEDS: HYDROcodone/Acetaminophen 10/325 mg Tablet PO PRN ×2 (17:33→21:19)
[2018-11-12] MEDS ORDERED: Lidocaine 1% PF 5 ML VIAL ONE (21:10)
[2018-11-12] MEDS ORDERED: ePHEDrine/0.9% NaCl/PF SYRINGE 50 mg/10 ml ONE (21:10)
[2018-11-12] MEDS ORDERED: Ketorolac Tromethamine 30 MG/ML VIAL ONE (21:10)
[2018-11-12] MEDS ORDERED: PROPOFOL 200 MG/20 ML VIAL ONE (21:10)
[2018-11-12] MEDS ORDERED: Dexamethasone 20 MG/5 ML VIAL ONE (21:10)
[2018-11-12] MEDS ORDERED: Ondansetron PF 4 MG/2 ML Vial ONE (21:10)
[2018-11-12] MEDS: Carvedilol 6.25 MG TAB PO SCH (21:20)
[2018-11-12] MEDS: Ferrous Gluconate 324 MG TAB PO SCH (21:20)
[2018-11-12] MEDS: Senokot S 8.6-50 MG TAB PO SCH (21:20)
[2018-11-12] MEDS: Aspirin 81 mg Enteric Coated Tablet PO SCH (21:21)
[2018-11-12] MEDS: Montelukast Sodium 10 mg Tablet PO SCH (21:21)
[2018-11-12] MEDS: Rosuvastatin 20 MG TAB PO SCH (21:21)
[2018-11-12] MEDS: Cyclobenzaprine 10 MG TAB PO PRN (23:01)
[2018-11-13 05:45] LABS: Hemoglobin 12.4 g/dL (14.0-18.0); Mean Corpuscular HGB CONC 34.7 g/dL (32.0-36.0); Mean Corpuscular Hemoglobin 32.6 pg (27.0-31.0); Mean Platelet Volume 9.9 fL (7.4-10.4); Platelet Count 141 thou/uL (130-400); RBC Distribution Width 12.1 % (11.5-14.5); White Blood Cell (WBC) Count 19.6 thou/uL (4.8-10.8)
[2018-11-13] MEDS: HYDROcodone/Acetaminophen 10/325 mg Tablet PO PRN ×4 (06:36→21:55)
[2018-11-13] MEDS: Dextrose 5 %-0.45 % NaCl 1,000 ML IV SCH ×2 (07:21→18:45)
[2018-11-13] MEDS: Multivitamin W/ Minerals 1 TAB PO SCH (08:22)
[2018-11-13] MEDS: Carvedilol 6.25 MG TAB PO SCH ×2 (08:23→21:57)
[2018-11-13] MEDS: Aspirin 81 mg Enteric Coated Tablet PO SCH ×2 (08:23→21:57)
[2018-11-13] MEDS: Clopidogrel Bisulfate 75 MG TAB PO SCH (08:23)
[2018-11-13] MEDS: Senokot S 8.6-50 MG TAB PO SCH ×2 (08:23→21:56)
[2018-11-13] MEDS: Ferrous Gluconate 324 MG TAB PO SCH ×2 (08:23→21:56)
[2018-11-13] MEDS ORDERED: MESALAMINE 0.375 GM PO SCH (09:00)
[2018-11-13] MEDS ORDERED: Fluticasone Propionate Nasal Spray 16 gm Bottle NASAL SCH (09:00)
[2018-11-13] MEDS: traMADol HCl 50 MG TAB PO PRN (09:47)
--- NOTE | 2018-11-13 15:38 | PDOC.PN ---
- Subjective Encounter Start Date: 11/13/18 Encounter Start Time: 10:00 Subjective: pt up in chair no complains - Objective Vital Signs & Weight: Vital Signs (12 hours) Temp Pulse Resp BP BP Pulse Ox 11/13/18 08:23 105/65 11/13/18 08:00 95 11/13/18 07:29 98.6 F 78 14 105/65 95 11/13/18 03:55 98.5 F 87 19 126/77 94 L Weight Weight 235 lb I&O: 11/12/18 11/13/18 11/14/18 06:59 06:59 06:59 Intake Total 1285 450 Output Total 1850 Balance -565 450 Result Diagrams: 11/13/18 05:14 Phys Exam - Physical Examination Neck: no nodes, no JVD, supple, full ROM Respiratory: no wheezing, no rales, no rhonchi, wheezing present, clear to auscultation bilateral Cardiovascular: RRR, no significant murmur, no rub, gallop, irregular Gastrointestinal: soft, non-tender, no distention, positive bowel sounds Dx/Plan (1) HTN (hypertension) Code(s): I10 - ESSENTIAL (PRIMARY) HYPERTENSION Status: Chronic Qualifiers: Hypertension type: essential hypertension Qualified Code(s): I10 - Essential (primary) hypertension (2) Dyslipidemia Code(s): E78.5 - HYPERLIPIDEMIA, UNSPECIFIED Status: Chronic (3) Status post total knee replacement, right Code(s): Z96.651 - PRESENCE OF RIGHT ARTIFICIAL KNEE JOINT Status: Acute - Plan pt has elevated wbc, encouraged using IS -: will check cbc in am -: urine done on 11/11 only few wbc -: bp is low stable * . Review of Systems - Review of Systems Respiratory: negative: Cough, Dry, Shortness of Breath, Hemoptysis, SOB with Excertion, Pleuritic Pain, Sputum, Wheezing Cardiovascular: negative: chest pain, palpitations, orthopnea, paroxysmal nocturnal dyspnea, edema, light headedness, other Gastrointestinal: negative: Nausea, Vomiting, Abdominal Pain, Diarrhea, Constipation, Melena, Hematochezia, Other Genitourinary: negative: Dysuria, Frequency, Incontinence, Hematuria, Retention , Other - Medications/Allergies Allergies/Adverse Reactions: Allergies Allergy/AdvReac Type Severity Reaction Status Date / Time sulfasalazine Allergy Verified 11/01/18 12:47 tetracycline Allergy Verified 11/01/18 12:47 Medications: Current Medications Acetaminophen (Tylenol) 650 mg PO Q4H PRN PRN Reason: Headache/Fever or Pain Hydrocodone Bitart/Acetaminophen (Mina 10/325) 1 tab PO Q4H PRN PRN Reason: Pain (1-3) Last Admin: 11/13/18 06:36 Dose: 1 tab Hydrocodone Bitart/Acetaminophen (Mina 10/325) 2 tab PO Q4H PRN PRN Reason: PAIN (4-6) Last Admin: 11/13/18 13:12 Dose: 2 tab Aspirin (Ecotrin) 81 mg PO BID [facility] Last Admin: 11/13/18 08:23 Dose: 81 mg Carvedilol (Coreg) 12.5 mg PO BID [facility] Last Admin: 11/13/18 08:23 Dose: 12.5 mg Clopidogrel Bisulfate (Plavix) 75 mg PO DAILY [facility] Last Admin: 11/13/18 08:23 Dose: 75 mg Cyclobenzaprine HCl (Flexeril) 10 mg PO TIDPRN PRN PRN Reason: Muscle Spasm Last Admin: 11/12/18 23:01 Dose: 10 mg Diphenhydramine HCl (Benadryl) 25 mg PO Q6H PRN PRN Reason: Itching Fentanyl (Sublimaze) 50 mcg IV Q1H PRN PRN Reason: BT PAIN Fentanyl (Sublimaze) 100 mcg SLOW IVP Q1H PRN PRN Reason: Severe Pain (7-10) Ferrous Gluconate (Fergon) 324 mg PO BID [facility] Last Admin: 11/13/18 08:23 Dose: 324 mg Fluticasone Propionate (Flonase Nasal [place]) 0 gm NASAL DAILY [facility] Last Admin: 11/13/18 08:49 Dose: Not Given Ropivacaine 250 ml/ Device 250 mls @ 0 mls/hr NERVE BLCK INF [facility] Dextrose/Sodium Chloride (D5 1/2 Ns) 1,000 mls @ 100 mls/hr IV .Q10H [facility] Last Admin: 11/13/18 07:21 Dose: Not Given Iron/Minerals/Multivitamins (Theragran M) 1 tab PO DAILY [facility] Last Admin: 11/13/18 08:22 Dose: 1 tab Ketorolac Tromethamine (Toradol) 15 mg IVP Q8HR PRN PRN Reason: Pain Stop: 11/14/18 11:21 Montelukast Sodium (Singulair) 10 mg PO QPM [facility] Last Admin: 11/12/18 21:21 Dose: 10 mg Olmesartan (Benicar) 20 mg PO DAILY [facility] Last Admin: 11/13/18 08:23 Dose: 20 mg Ondansetron HCl (Zofran) 4 mg IVP Q6H PRN PRN Reason: Nausea/Vomiting Pantoprazole Sodium (Protonix) 40 mg PO HS [facility] Last Admin: 11/12/18 21:20 Dose: 40 mg Mesalamine 0.375 Gm- (3 Caps) 0 [facility] Promethazine HCl (Phenergan) 12.5 mg IM Q4H PRN PRN Reason: Nausea Rosuvastatin Calcium (Crestor) 40 mg PO HS [facility] Last Admin: 11/12/18 21:21 Dose: 40 mg Senna/Docusate Sodium (Senokot S) 2 tab PO BID [facility] Last Admin: 11/13/18 08:23 Dose: 2 tab Sodium Chloride (Flush - Normal Saline) 10 ml IVF PRN PRN PRN Reason: Saline Flush Tramadol HCl (Ultram) 50 mg PO Q6H PRN PRN Reason: Mild Pain (1-3) Tramadol HCl (Ultram) 100 mg PO Q6H PRN PRN Reason: Moderate Pain 4-6 Last Admin: 11/13/18 09:47 Dose: 100 mg Zolpidem Tartrate (Ambien) 5 mg PO HSPRN PRN PRN Reason: Insomnia
[2018-11-13] MEDS: Rosuvastatin 20 MG TAB PO SCH (21:56)
[2018-11-13] MEDS: Montelukast Sodium 10 mg Tablet PO SCH (21:57)
[2018-11-14] MEDS: Cyclobenzaprine 10 MG TAB PO PRN (01:18)
[2018-11-14] MEDS: Dextrose 5 %-0.45 % NaCl 1,000 ML IV SCH (02:05)
[2018-11-14] MEDS: HYDROcodone/Acetaminophen 10/325 mg Tablet PO PRN ×2 (03:35→08:06)
[2018-11-14] MEDS: Multivitamin W/ Minerals 1 TAB PO SCH (08:07)
[2018-11-14] MEDS: Aspirin 81 mg Enteric Coated Tablet PO SCH (08:07)
[2018-11-14] MEDS: Carvedilol 6.25 MG TAB PO SCH (08:07)
[2018-11-14] MEDS: Senokot S 8.6-50 MG TAB PO SCH (08:07)
[2018-11-14] MEDS: Clopidogrel Bisulfate 75 MG TAB PO SCH (08:08)
[2018-11-14] MEDS: Ferrous Gluconate 324 MG TAB PO SCH (08:08)
[2018-11-14 08:18] LABS: Hemoglobin 12.8 g/dL (14.0-18.0); Mean Corpuscular HGB CONC 33.5 g/dL (32.0-36.0); Mean Corpuscular Volume 95.4 fL (78.0-98.0); Mean Platelet Volume 10.1 fL (7.4-10.4); Platelet Count 165 thou/uL (130-400); RBC Distribution Width 12.3 % (11.5-14.5); Red Blood Cell (RBC) Count 3.99 mill/uL (4.70-6.10); White Blood Cell (WBC) Count 17.8 thou/uL (4.8-10.8)
[2018-11-14] MEDS ORDERED: Non-Formulary Item 1 EACH (Carvedilol [Carvedilol] 12.5 MG) PO SCH (12:15)
[2018-11-14 13:20] VITALS: BP 136/76; TEMP 98
== END 2018-11-14 17:00 | disposition home or self-care (01) | DRG 470 ==
LOC: SDC 05:40 → SJJU 10:58
PROVIDERS: ADMIT Orthopaedic Surgery; ATTEND Orthopaedic Surgery
PROC: 0SRC0J9 Replacement of Right Knee Joint with Synthetic Substitute, Cemented, Open Approach (ICD-10-PCS; principal; 2018-11-12)
DX: M17.11 Unilateral primary osteoarthritis, right knee (principal); K50.90 Crohn's disease, unspecified, without complications; I10 Essential (primary) hypertension; E78.5 Hyperlipidemia, unspecified; K21.9 Gastro-esophageal reflux disease without esophagitis; Z95.5 Presence of coronary angioplasty implant and graft; Z88.8 Allergy status to other drugs, medicaments and biological substances; Z88.2 Allergy status to sulfonamides; I25.10 Atherosclerotic heart disease of native coronary artery without angina pectoris
CPT/HCPCS: 36415; 85027; C1713; C1776; G8978-GP-CK; G8979-GP-CI; J0131; J1100; J1885; J2001; J2250; J2405; J2704; J2795; J3010; J3370; J3490; J7050; S0020

== ENCOUNTER 2019-07-16 12:55 | Outpatient (CLI) | payer MEDICARE, BC ==
--- NOTE | 2019-07-16 15:47 | CT ---
CT OF THE ABDOMEN AND PELVIS 07/16/19 HISTORY: Abdominal distention and weight gain. TECHNIQUE: Axial CT imaging at 5 mm intervals from the lung bases through the pubic symphysis without contrast. Coronal reformatted imaging obtained. FINDINGS: The lack of contrast media limits assessment of the viscera, bowel, vascular structures and for lymph adenopathy. There is mild increased linear density in bilateral lower lobes suggesting volume loss. No free intraperitoneal air or fluid is seen. Cholecystectomy clips are present. The liver, spleen, pancreas, adrenal glands, and kidneys appear unremarkable. No nephrolithiasis or evidence of obstructive uropathy on either side. There is mild diverticulosis of the descending colon and the sigmoid colon with no evidence for diver ticulitis. No evidence for bowel obstruction. The appendix is unremarkable. There is scattered athero sclerotic calcification of the abdominal aorta and its branches. Review of the osseous structures dem onstrates multilevel lower lumbar spine facet hypertrophy. There is no worrisome lytic or blastic bon e lesions seen. IMPRESSION: No acute findings. POS: [facility]
== END 2019-07-16 12:56 | disposition home or self-care (01) ==
LOC: SCSCT 12:55
PROVIDERS: ATTEND Family Medicine
DX: R14.0 Abdominal distension (gaseous) (principal)
CPT/HCPCS: 74176

== ENCOUNTER 2019-09-14 18:04 | Emergency (ER) | payer MEDICARE, BC | END 2019-09-14 18:56 | disposition home or self-care (01) | LOC: SCSER 18:04 | DX: H69.81 Other specified disorders of Eustachian tube, right ear (principal); E78.5 Hyperlipidemia, unspecified; E78.00 Pure hypercholesterolemia, unspecified; I10 Essential (primary) hypertension; I20.9 Angina pectoris, unspecified; Z79.899 Other long term (current) drug therapy; Z79.82 Long term (current) use of aspirin | CPT/HCPCS: 99282 ==

== ENCOUNTER 2021-11-30 10:22 | Outpatient (CLI) | payer MEDICARE, BC | END 2021-11-30 10:23 | disposition home or self-care (01) | LOC: TBSIIMAG 10:22 | PROVIDERS: ATTEND Nurse Practitioner Family | DX: M51.17 Intervertebral disc disorders with radiculopathy, lumbosacral region (principal); M48.061 Spinal stenosis, lumbar region without neurogenic claudication | CPT/HCPCS: 72148 ==

== ENCOUNTER 2022-12-04 10:05 | Outpatient (CLI) | payer MEDICARE, BC | END 2022-12-04 10:06 | disposition home or self-care (01) | LOC: SCSRAD 10:05 | PROVIDERS: ATTEND Family Medicine | DX: M25.562 Pain in left knee (principal) ==

== ENCOUNTER 2023-10-03 10:01 | Outpatient (CLI) | payer MEDICARE, BC ==
[2023-10-03 13:38] LABS: Bilirubin Neg (Negative); Blood, Urine Negative (Negative); Clarity Cloudy (Clear); Glucose, Urine (Dipstick) Normal (Negative); Ketone, Urine Negative (Negative); Leukocyte Negative (Negative); Nitrite Negative (Negative); Protein, Urine (Dipstick) 30 mg/dl (Neg-Trace); Specific Gravity, Urine 1.025 (1.005-1.030)
[2023-10-03 13:41] LABS: Hematocrit 42.5 % (38.8-50.0); Hemoglobin 14.1 g/dL (13.5-17.5); Mean Corpuscular HGB CONC 33.2 g/dL (32.0-36.0); Mean Corpuscular Hemoglobin 31.1 pg (27.0-33.0); Mean Corpuscular Volume 93.6 fl (81.2-95.1); Mean Platelet Volume 11.7 fl (7.4-10.4); Platelet Count 177 10x3/uL (150-450); RBC Distribution Width 13.3 % (11.5-14.5); Red Blood Cell (RBC) Count 4.54 10x6/uL (4.32-5.72); White Blood Cell (WBC) Count 10.1 10x3/uL (3.5-10.5)
[2023-10-03 13:56] LABS: PTT 28.1 sec (22.0-33.0); Prothrombin Time 10.6 sec (9.5-12.1)
[2023-10-03 14:00] LABS: Anion Gap 15 mmol/L (10-20); BUN (Urea Nitrogen) 23 mg/dL (8.4-25.7); Calc. Creatinine Clearance 0 mL/min (70-130); Calcium 9.2 mg/dL (7.8-10.44); Carbon Dioxide 23 mmol/L (23-31); Chloride 106 mmol/L (98-107); Estimated GFR 88; Glucose 116 mg/dL (83-110); Sodium 140 mmol/L (136-145)
[2023-10-03 14:16] LABS: Bacteria/HPF Rare-Few HPF (None Seen); RBC/HPF 0-3 HPF (0-3); Squamous Epithelial None Seen HPF (0-3); WBC/HPF 0-3 HPF (0-3)
== END 2023-10-03 10:02 | disposition home or self-care (01) ==
LOC: LABBT 10:01
PROVIDERS: ATTEND Urology
DX: Z01.818 Encounter for other preprocedural examination (principal); N40.1 Benign prostatic hyperplasia with lower urinary tract symptoms; R39.14 Feeling of incomplete bladder emptying; N52.9 Male erectile dysfunction, unspecified
CPT/HCPCS: 80048; 81001; 85027; 85610; 85730; 87086; 93005; 93010

== ENCOUNTER 2023-10-12 06:00 | Day surgery (SDC) | payer MEDICARE, BC ==
[2023-10-03 10:59] VITALS: BMI 34.4
[2023-10-12] MEDS ORDERED: LevoFLOXacin 500 mg/D5W 100 ML BAG ONE (06:53)
[2023-10-12] MEDS ORDERED: Lidocaine 1% PF 5 ML VIAL ONE ×2 (07:08→07:41)
[2023-10-12] MEDS ORDERED: PROPOFOL 20 ML ONE ×3 (07:08→07:51)
[2023-10-12] MEDS ORDERED: fentaNYL 50 mcg/mL 1 mL Vial ONE ×2 (07:39→11:37)
[2023-10-12] MEDS ORDERED: ePHEDrine Sulfate 50 MG/10 ML VIAL ONE ×2 (07:41→07:53)
[2023-10-12] MEDS ORDERED: PROPOFOL 200 MG/20 ML VIAL ONE (07:41)
[2023-10-12] MEDS ORDERED: Oxybutynin 5 MG TAB ONE (08:25)
[2023-10-12] MEDS ORDERED: Phenazopyridine HCl 100 MG TAB ONE (08:25)
[2023-10-12] MEDS ORDERED: Morphine 2 MG/ML VIAL ONE (08:42)
[2023-10-12] MEDS ORDERED: HYDROcodone/Acetaminophen 5/325 mg Tablet ONE (13:21)
== END 2023-10-12 15:00 | disposition home or self-care (01) ==
LOC: SDC 06:00
PROVIDERS: ATTEND Urology
PROC: 0T7D8DZ Dilation of Urethra with Intraluminal Device, Via Natural or Artificial Opening Endoscopic (ICD-10-PCS; principal; 2023-10-12)
DX: N40.1 Benign prostatic hyperplasia with lower urinary tract symptoms (principal); N13.8 Other obstructive and reflux uropathy; I11.0 Hypertensive heart disease with heart failure; I50.9 Heart failure, unspecified; I25.10 Atherosclerotic heart disease of native coronary artery without angina pectoris; I42.9 Cardiomyopathy, unspecified; I44.7 Left bundle-branch block, unspecified; Z88.1 Allergy status to other antibiotic agents; Z88.2 Allergy status to sulfonamides; Z79.899 Other long term (current) drug therapy; Z90.49 Acquired absence of other specified parts of digestive tract; Z96.651 Presence of right artificial knee joint
CPT/HCPCS: C9740; J3010; L8699 ×2; J1956; J2272; J2704

== ENCOUNTER 2024-12-04 10:58 | Outpatient (CLI) | payer MEDICARE, BC ==
[2024-12-04 12:21] LABS: #Basophils 0.08 10x3/uL (0.0-0.2); %Basophils 0.7 % (0.0-1.0); %Eosinophils 3.5 % (0.0-10.0); %Monocytes 14.1 % (0.0-10.0); %Neutrophils 57.1 % (42.0-75.0); Hematocrit 45.2 % (42.0-52.0); Hemoglobin 15.2 g/dL (14.0-18.0); Mean Corpuscular HGB CONC 33.6 g/dL (32.0-36.0); Mean Corpuscular Hemoglobin 31.1 pg (27.0-31.0); Mean Corpuscular Volume 92.4 fL (78.0-98.0); Mean Platelet Volume 11.7 fL (7.4-10.4); Platelet Count 151 10x3/uL (130-400); RBC Distribution Width 13.1 % (11.5-14.5); Red Blood Cell (RBC) Count 4.89 mill/uL (4.70-6.10)
[2024-12-04 12:34] LABS: PTT 29.4 sec (22.9-36.1); Prothrombin Time 13.5 sec (12.0-14.7)
[2024-12-04 13:04] LABS: Anion Gap 12 mmol/L (10-20); BUN (Urea Nitrogen) 17 mg/dL (8.4-25.7); Carbon Dioxide 24 mmol/L (23-31); Chloride 107 mmol/L (98-107); Glucose 105 mg/dL (83-110); Potassium 3.9 mmol/L (3.5-5.1); Sodium 139 mmol/L (136-145)
[2024-12-04 13:21] LABS: Calc. Creatinine Clearance 0 mL/min (70-130); Estimated GFR 68
== END 2024-12-04 10:59 | disposition home or self-care (01) ==
LOC: LABBT 10:58
PROVIDERS: ATTEND Orthopaedic Surgery
DX: Z01.818 Encounter for other preprocedural examination (principal); M19.012 Primary osteoarthritis, left shoulder
CPT/HCPCS: 80048; 85025; 85610; 85730; 87081; 93005; 93010

== ENCOUNTER 2024-12-26 10:31 | Outpatient (CLI) | payer MEDICARE, BC | END 2024-12-26 10:32 | disposition home or self-care (01) | LOC: SCSRAD 10:31 | DX: M25.562 Pain in left knee (principal); M17.12 Unilateral primary osteoarthritis, left knee ==

== ENCOUNTER 2025-01-29 10:22 | Outpatient (CLI) | payer MEDICARE, BC ==
[2025-01-29 11:35] LABS: #Basophils 0.07 10x3/uL (0.0-0.2); %Basophils 0.8 % (0.0-1.0); %Eosinophils 3.3 % (0.0-10.0); %Lymphocytes 22.7 % (21.0-51.0); %Monocytes 12.3 % (0.0-10.0); %Neutrophils 60.4 % (42.0-75.0); Hematocrit 40.8 % (42.0-52.0); Hemoglobin 13.7 g/dL (14.0-18.0); Mean Corpuscular HGB CONC 33.6 g/dL (32.0-36.0); Mean Corpuscular Hemoglobin 30.9 pg (27.0-31.0); Mean Corpuscular Volume 92.1 fL (78.0-98.0); Mean Platelet Volume 11.9 fL (7.4-10.4); Platelet Count 162 10x3/uL (130-400); RBC Distribution Width 13.5 % (11.5-14.5); Red Blood Cell (RBC) Count 4.43 mill/uL (4.70-6.10)
[2025-01-29 12:00] LABS: Anion Gap 12 mmol/L (10-20); BUN (Urea Nitrogen) 14 mg/dL (8.4-25.7); Calc. Creatinine Clearance 0 mL/min (70-130); Calcium 9.5 mg/dL (7.8-10.44); Carbon Dioxide 25 mmol/L (23-31); Chloride 106 mmol/L (98-107); Estimated GFR 84; Glucose 137 mg/dL (83-110); Potassium 3.7 mmol/L (3.5-5.1); Sodium 139 mmol/L (136-145)
[2025-01-29 12:34] LABS: INR-International Normal Ratio 1.2; Prothrombin Time 14.8 sec (12.0-14.7)
== END 2025-01-29 10:23 | disposition home or self-care (01) ==
LOC: LABBT 10:22
PROVIDERS: ATTEND Orthopaedic Surgery
DX: Z01.818 Encounter for other preprocedural examination (principal); M19.012 Primary osteoarthritis, left shoulder
CPT/HCPCS: 80048; 85025; 85610; 87081; 93005; 93010

== ENCOUNTER 2025-07-13 11:47 | Outpatient (CLI) | payer MEDICARE, BC | END 2025-07-13 11:48 | disposition home or self-care (01) | LOC: SCSRAD 11:47 | PROVIDERS: ATTEND Family Medicine | DX: S63.502A Unspecified sprain of left wrist, initial encounter (principal); S52.572A Other intraarticular fracture of lower end of left radius, initial encounter for closed fracture ==